=== PATIENT | male | born 1980 | race Two or more races ===

== ENCOUNTER 2017-07-01 20:13 | Emergency (ER) | payer SELFPAY ==
[~2017-07-01] VITALS: Ht 182.9 cm; Wt 84.0 kg
[2017-07-01 20:54] VITALS: BP 118/77
== END 2017-07-01 23:00 | disposition left against medical advice (07) ==
LOC: ER 20:13
DX: R10.9 Unspecified abdominal pain (principal); Z53.21 Procedure and treatment not carried out due to patient leaving prior to being seen by health care provider